=== PATIENT | female | born 1955 | race Hispanic/Latino ===

== ENCOUNTER 2025-06-15 06:51 | Emergency (ER) | payer OTHER ==
--- OUTSIDE RECORDS SUMMARY | 2025-06-15 06:55 | XMS REPORT | Continuity of Care Document ---
Author Name Unknown Address [address] [facility] [place] [address] [facility] [place] Address [address] [facility] [place] [address] Care Team Providers Care Hand Mixer Name Role Phone Olayinka Yepez Attending Clinician Unavailable JUVE NUNO Attending Clinician Unavailable SNEHA COHEN Attending Clinician OZ Cuba Attending Clinician Unavailable [facility] Attending Clinician Unavailable Sneha Cohen MD Attending Clinician [phone] Payers Payer Name Policy Type Policy Number Effective Date Expirati on Date Source [employer] NITIN GOLD PLUS 42 OA 7 [id number] 2022 00:00:00 [employer] 2 [id number] 2021 00:00:00 Problems Condition Name Condition Details Condition Category Status Onset Date Resolution Date Last Treatment Date Treating Clinician Comments Source Pruritus of vulva Pruritus of Vulva Problem Active 7- 00:00: 00 [facility] 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 Hyperglyce ruby Due to Type 2 Diabetes Mellitus Problem Active 9-08 00:00: 00 [facility] Right lower quadrant pain Right Lower Quadrant Pain Problem Active 06-12 00:00: 00 [facility] Screening mammograph y Screening Mammograph y Problem Active 06-12 00:00: 00 [facility] Intertrigo Intertrigo Problem Active 06-12 00:00: 00 [facility] Hormone replacemen t therapy Hormone Replacemen t Therapy Problem Active 01-10 00:00: 00 [facility] Family history of breast cancer Family History of Breast Cancer Problem Active 01-10 00:00: 00 [facility] Pain of breast Pain of Breast Problem Active 01-10 00:00: 00 [facility] Gynecologi isaías examinatio n abnormal Gynecologi isaías Examinatio n Abnormal Problem Active 01-07 00:00: 00 [facility] Candidiasi s of vagina Candidiasi s of Vagina Problem Active 01-07 00:00: 00 [facility] Atrophic vaginitis Atrophic Vaginitis Problem Active 01-07 00:00: 00 [facility] Hypothyroi dism Hypothyroi dism Problem [facility] [id number] Body mass index [BMI] 32.0-32.9, adult Problem [facility] [id number] Other obesity due to excess calories Problem [facility] [id number] Type 2 diabetes mellitus without complicati on, without long-term current use of insulin Problem [facility] Abnormal mammogram Abnormal mammogram Problem [facility] [id number] Anxiety Problem [facility] [id number] Type 2 diabetes mellitus with hyperglyce ruby, without long-term current use of insulin Problem [facility] [id number] Gastroesop hageal reflux disease without esophagiti s Problem [facility] Anxiety disorder Other specified anxiety disorders Problem [facility] Anemia Anemia, unspecifie d type Problem [facility] [id number] Chronic kidney disease, stage 3 unspecifie d Problem [facility] [id number] Essential hypertensi on Problem [facility] Social History Social Habit Start Date Stop Date Quantity Comments Source History of Tobacco Use [facility] Sex Assigned At [facility] Smoking Status Start Date Stop Date Source Never Smoker [facility] Medications Ordered Medication Name Filled Medication Name Start Date Stop Date Current Medication? Ordering Clinician Indication Dosage Frequency Signature (SIG) Comments Components Source B-Complex Plus B-12 B-Complex Plus B-12 No B-Complex Plus B-12 [facility] escitalopra m 20 mg tablet TAKE 1 TABLET BY MOUTH EVERY DAY FOR 90 DAYS escitalopra m 20 mg tablet TAKE 1 TABLET BY MOUTH EVERY DAY FOR 90 DAYS No escitalopr am 20 mg tablet TAKE 1 TABLET BY MOUTH EVERY DAY FOR 90 DAYS [facility] estradiol 0.01% (0.1 mg/gram) vaginal cream Insert 0.5 g 3 times a week by vaginal route at bedtime for 30 days. estradiol 0.01% (0.1 mg/gram) vaginal cream Insert 0.5 g 3 times a week by vaginal route at bedtime for 30 days. No .5g Q56H estradiol 0.01% (0.1 mg/gram) vaginal cream Insert 0.5 g 3 times a week by vaginal route at bedtime for 30 days. [facility] Mounjaro 12.5 MG/0.5ML Mounjaro 12.5 MG/0.5ML No Mounjaro 12.5 MG/0.5ML Vitamin D Vitamin D No Vitamin D Escitalopra m Oxalate 20 MG Escitalopra m Oxalate 20 MG No 1{table t} QD Escitalopr am Oxalate 20 MG Ramipril 10 MG Ramipril 10 MG No 1{capsu le} QD Ramipril 10 MG Pantoprazol e Sodium 40 MG Pantoprazol e Sodium 40 MG No 1{table t} QD Pantoprazo le Sodium 40 MG Levothyroxi ne Sodium 75 MCG Levothyroxi ne Sodium 75 MCG No QD Levothyrox ine Sodium 75 MCG Aspirin 81 81 MG Aspirin 81 81 MG No 1{table t} QD Aspirin 81 81 MG Jardiance 10 mg tablet TAKE 1 TABLET BY MOUTH EVERY DAY FOR 90 DAYS Jardiance 10 mg tablet TAKE 1 TABLET BY MOUTH EVERY DAY FOR 90 DAYS No Jardiance 10 mg tablet TAKE 1 TABLET BY MOUTH EVERY DAY FOR 90 DAYS [facility] levothyroxi ne 75 mcg tablet TAKE 1 TABLET BY MOUTH EVERY DAY levothyroxi ne 75 mcg tablet TAKE 1 TABLET BY MOUTH EVERY DAY No levothyrox ine 75 mcg tablet TAKE 1 TABLET BY MOUTH EVERY DAY [facility] magnesium magnesium No magnesium [facility] Mounjaro 7.5 mg/0.5 mL subcutaneou s pen injector INJECT 7.5MG SUBCUTANEOU S ONCE A WEEK 30 DAYS Mounjaro 7.5 mg/0.5 mL subcutaneou s pen injector INJECT 7.5MG SUBCUTANEOU S ONCE A WEEK 30 DAYS No Mounjaro 7.5 mg/0.5 mL subcutaneo us pen injector INJECT 7.5MG SUBCUTANEO US ONCE A WEEK 30 DAYS [facility] ramipril 10 mg capsule TAKE 1 CAPSULE BY MOUTH EVERY DAY ramipril 10 mg capsule TAKE 1 CAPSULE BY MOUTH EVERY DAY No ramipril 10 mg capsule TAKE 1 CAPSULE BY MOUTH EVERY DAY [facility] triamcinolo ne acetonide 0.1 % topical ointment APPLY A THIN LAYER TO THE AFFECTED AREA(S) BY TOPICAL ROUTE 2 TIMES PER DAY triamcinolo ne acetonide 0.1 % topical ointment APPLY A THIN LAYER TO THE AFFECTED AREA(S) BY TOPICAL ROUTE 2 TIMES PER DAY No triamcinol one acetonide 0.1 % topical ointment APPLY A THIN LAYER TO THE AFFECTED AREA(S) BY TOPICAL ROUTE 2 TIMES PER DAY [facility] Vitamin D3 Vitamin D3 No Vitamin D3 [facility] zinc zinc No zinc [facility] Immunizations Ordered Immunization Name Filled Immunization Name Date Status Comments Source Fluad (aIIV4) - SDS - 0.5mL Fluad (aIIV4) - SDS - 0.5mL Unknown Completed [facility] Flucelvax (ccIIV3) - SDS - 0.5mL Flucelvax (ccIIV3) - SDS - 0.5mL Unknown Completed [facility] Vital Signs Vital Name Observation Time Observation Value Comments S nicole height 2025-05-02 16:15:00 65 [in_i] Commo n [facility] weight 2025-05-02 16:15:00 155 [lb_av] Comm on [facility] bmi 2025-05-02 16:15:00 25.79 kg/m2 Comm on [facility] blood pressure systolic 2025-05-02 16:15:00 125 mm[Hg] Common [facility] blood pressure diastolic 2025-05-02 16:15:00 76 mm[Hg] [facility] height 2024-12-21 13:45:00 65 [in_i] Commo n [facility] weight 2024-12-21 13:45:00 160 [lb_av] Comm on [facility] bmi 2024-12-21 13:45:00 26.62 kg/m2 Comm on [facility] blood pressure systolic 2024-12-21 13:45:00 121 mm[Hg] [facility] blood pressure diastolic 2024-12-21 13:45:00 76 mm[Hg] Common [facility] height 2024-09-12 10:00:00 65 [in_i] Commo n [facility] weight 2024-09-12 10:00:00 166.6 [lb_av] Co mmon [facility] temperature 2024-09-12 10:00:00 97.6 [degF] Com mon [facility] bmi 2024-09-12 10:00:00 27.72 kg/m2 Comm on [facility] oximetry 2024-09-12 10:00:00 97 % Commo n [facility] respiratory rate 2024-09-12 10:00:00 16 /min [facility] blood pressure systolic 2024-09-12 10:00:00 118 mm[Hg] [facility] blood pressure diastolic 2024-09-12 10:00:00 70 mm[Hg] [facility] height 2024-09-12 10:20:00 65 [in_i] Commo n [facility] weight 2024-09-12 10:20:00 166.6 [lb_av] Co mmon [facility] temperature 2024-09-12 10:20:00 97.6 [degF] Com [facility] bmi 2024-09-12 10:20:00 27.72 kg/m2 Comm on [facility] oximetry 2024-09-12 10:20:00 97 % Commo n [facility] respiratory rate 2024-09-12 10:20:00 16 /min [facility] blood pressure systolic 2024-09-12 10:20:00 118 mm[Hg] [facility] blood pressure diastolic 2024-09-12 10:20:00 70 mm[Hg] Common [facility] height 2024-09-12 10:20:00 65 [in_i] Commo n [facility] weight 2024-09-12 10:20:00 166.6 [lb_av] Co [facility] temperature 2024-09-12 10:20:00 97.6 [degF] Com [facility] bmi 2024-09-12 10:20:00 27.72 kg/m2 Comm on [facility] oximetry 2024-09-12 10:20:00 97 % Commo n [facility] respiratory rate 2024-09-12 10:20:00 16 /min [facility] blood pressure systolic 2024-09-12 10:20:00 118 mm[Hg] [facility] blood pressure diastolic 2024-09-12 10:20:00 70 mm[Hg] Common [facility] height 2024-06-08 08:00:00 65 [in_i] Commo n [facility] weight 2024-06-08 08:00:00 175.4 [lb_av] Co [facility] temperature 2024-06-08 08:00:00 97.2 [degF] Com [facility] bmi 2024-06-08 08:00:00 29.18 kg/m2 Comm on [facility] oximetry 2024-06-08 08:00:00 99 % Commo n [facility] blood pressure systolic 2024-06-08 08:00:00 120 mm[Hg] [facility] blood pressure diastolic 2024-06-08 08:00:00 64 mm[Hg] Common [facility] height 2024-06-08 08:00:00 65 [in_i] Commo n [facility] weight 2024-06-08 08:00:00 175.4 [lb_av] Co mmon [facility] temperature 2024-06-08 08:00:00 97.2 [degF] Com mon [facility] bmi 2024-06-08 08:00:00 29.18 kg/m2 Comm on [facility] oximetry 2024-06-08 08:00:00 99 % Commo n [facility] blood pressure systolic 2024-06-08 08:00:00 120 mm[Hg] Common [facility] blood pressure diastolic 2024-06-08 08:00:00 64 mm[Hg] [facility] BP Diastolic 2024-05-04 00:00:00 62 mm[Hg] [facility] Weight 2024-05-04 00:00:00 177.8 [lb_av] [facility] Height 2024-05-04 00:00:00 65 [in_i] [facility] BP Systolic 2024-05-04 00:00:00 130 mm[Hg] [facility] BMI (Body Mass Index) 2024-05-04 00:00:00 29.6 kg/m2 [facility] Procedures Procedure Date / Time Performed Performing Clinicia n Source Gastric Bypass for Obesity 1981-10-19 00:00:00 [facility] Encounters Start Date/Time End Date/Time Encounter Type Admission Type Attending [facility] Care Facility Care Department Encounter ID Source 2024-06-08 08:00:[facility] [id number] 2023-04-24 13:07:00 Outpatient YepezOlayinka [facility]LMLC [facility] [id number] [facility] 2023-04-22 08:18:00 Outpatient YepezOlayinka STLMLC ST[facility] [id number] [facility] 2023-02-19 10:56:00 Outpatient YepezOlayinka STLMLC ST[facility] [id number] [facility] 2025-05-02 00:00:00 2025-05-02 00:00:00 OFFICE VISIT ESTAB PT LEVEL 4 [facility] ST[facility] [id number] [facility] 2025-02-21 00:00:00 2025-02-21 00:00:00 (TEL) STLMLC STL[facility]C [id number] [facility] 2025-02-09 00:00:00 2025-02-09 00:00:00 (TEL) STLMLC STLMLC [id number] [facility] 2024-12-21 00:00:00 2024-12-21 00:00:00 OFFICE VISIT ESTAB PT LEVEL 4 [facility]LMLC STLMLC [id number] [facility] 2024-11-25 00:00:00 2024-11-25 00:00:00 (TEL) STLMLC STLMLC [id number] [facility] 2024-09-12 00:00:00 2024-09-12 00:00:00 OFFICE VISIT ESTAB PT LEVEL 4 [facility]LMLC STLMLC [id number] [facility] 2024-09-12 00:00:00 2024-09-12 00:00:00 INIT ANNUAL [facility] VISIT STLML[facility] STL[facility]C [id number] [facility] 2024-06-08 00:00:00 2024-06-08 00:00:00 OFFICE VISIT ESTAB PT LEVEL 4 STLMLC STLMLC [id number] [facility] 2024-05-04 00:00:00 2024-05-04 00:00:00 HUY Barfield: [address], [place] [address] , Ph. [facility] - GC_GCBZW_Cindy Dykes* [id number] [facility] 2023-08-31 00:00:00 2023-08-31 00:00:00 Outpatient JUVE NUNO [id number] [facility] 2023-04-15 00:00:00 2023-04-15 00:00:00 Outpatient SNEHA COHEN [id number] [facility] 2023-04-13 00:00:00 2023-04-13 00:00:00 Outpatient SNEHA COHEN [id number] [facility] 2023-03-12 14:30:00 2023-03-12 14:30:00 Outpatient OZ LEWIS [id number] [facility] 2023-03-02 00:00:00 2023-03-02 00:00:00 Outpatient JUVE NUNO [id number] [facility] 2023-02-19 00:00:00 2023-02-19 00:00:00 Outpatient JUVE NUNO [id number] [facility] 2023-01-02 00:00:00 2023-01-02 00:00:00 Outpatient SNEHA COHEN [id number] [facility] 2022-12-11 00:00:00 2022-12-11 00:00:00 Outpatient SNEHA COHEN [id number] [facility] 2022-12-11 00:00:00 2022-12-11 00:00:00 Outpatient RAJWINDER MAY [id number] [facility] 2022-12-10 00:00:00 2022-12-10 00:00:00 Outpatient SNEHA COHEN [id number] [facility] 2022-12-10 00:00:00 2022-12-10 00:00:00 Outpatient RAJWINDER MAY [id number] [facility] 2022-11-25 00:00:00 2022-11-25 00:00:00 Outpatient RADHASNEHA PENNINGTON RAJWINDER MAY [id number] [facility] 2022-10-15 00:00:00 2022-10-15 00:00:00 Outpatient RADHA SNEHA MAY [id number] [facility] 2022-05-06 00:00:00 2022-05-06 00:00:00 Outpatient RADHA, SNEHA MAY [id number] [facility] 2022-05-02 00:00:00 2022-05-02 00:00:00 Outpatient SNEHA COHEN [id number] [facility] 2022-04-30 10:00:00 2022-04-30 10:00:00 Outpatient LAB90 RAJWINDER MAY [id number] [facility] 2022-04-30 09:15:00 2022-04-30 09:45:00 Office Visit Sneha Cohen [place] [id number] [facility] 2022-01-14 00:00:00 2022-01-14 00:00:00 Outpatient SNEHA COHEN [id number] [facility] 2021-11-06 00:00:00 2021-11-06 00:00:00 Outpatient SNEHA COHEN [id number] [facility] 2021-04-26 08:45:00 2021-04-26 08:45:00 Outpatient LAB90 RAJWINDER MAY [id number] [facility] 2021-04-26 08:00:00 2021-04-26 08:00:00 Outpatient SNEHA COHEN [id number] [facility] Results Test Description Test Time Test Comments Results Result Co mments Source COMPREHENSIVE METABOLIC [id number] 00:00:00* Test Item Value Reference Range Interpretation Comme nts NUCLEATED RBCS (test code = 38530-8) 0.0 /100 WBC'S See_Comment [Automated messa ge] The system which generated this result transmitted reference range: 0.0 /100 WBC'S. The reference range was not used to interpret this result as normal/abnormal. ABSOLUTE EOSINOPHILS (test code = 96855-9) 0.43 K/UL See_Comment [Automated messa ge] The system which generated this result transmitted reference range: 0.00-0.50 K/UL. The reference range was not used to interpret this result as normal/abnormal. ABSOLUTE LYMPHOCYTES (test code = 83814-4) 2.13 K/UL See_Comment [Automated messa ge] The system which generated this result transmitted reference range: 1.00-4.00 K/UL. The reference range was not used to interpret this result as normal/abnormal. ABSOLUTE MONOCYTES (test code = 52654-1) 0.59 K/UL See_Comment [Automated messa ge] The system which generated this result transmitted reference range: 0.20-1.00 K/UL. The reference range was not used to interpret this result as normal/abnormal. ABSOLUTE NEUTROPHILS (test code = 45125-4) 2.80 K/UL See_Comment [Automated messa ge] The system which generated this result transmitted reference range: 1.50-7.50 K/UL. The reference range was not used to interpret this result as normal/abnormal. BASOPHILS (test code = 63500-7) 1.8 % EOSINOPHILS (test code = 85859-8) 7.1 % HEMATOCRIT (test code = 28662-3) 36.5 % See_Comment [Automated messa ge] The system which generated this result transmitted reference range: 34.0-45.0 %. The reference range was not used to interpret this result as normal/abnormal. HEMOGLOBIN (test code = 718-7) 12.0 G/DL See_Comment [Automated messa ge] The system which generated this result transmitted reference range: 11.5-15.5 G/DL. The reference range was not used to interpret this result as normal/abnormal. LYMPHOCYTES (test code = 20841-4) 35.1 % MCH (test code = 59106-5) 28.6 PG See_Comment [Automated messa ge] The system which generated this result transmitted reference range: 25.0-33.0 PG. The reference range was not used to interpret this result as normal/abnormal. MCHC (test code = 81162-7) 32.9 G/DL See_Comment [Automated messa ge] The system which generated this result transmitted reference range: 31.0-36.0 G/DL. The reference range was not used to interpret this result as normal/abnormal. MCV (test code = 14325-2) 86.9 fL See_Comment [Automated messa ge] The system which generated this result transmitted reference range: 80.0-99.0 fL. The reference range was not used to interpret this result as normal/abnormal. MONOCYTES (test code = 66437-1) 9.7 % NEUTROPHILS (test code = 73818-2) 46.1 % PLATELET COUNT (test code = 84121-6) 243 K/UL See_Comment [Automated messa ge] The system which generated this result transmitted reference range: 130-400 K/UL. The reference range was not used to interpret this result as normal/abnormal. RBC (test code = 58361-6) 4.20 M/UL See_Comment [Automated messa ge] The system which generated this result transmitted reference range: 3.80-5.40 M/UL. The reference range was not used to interpret this result as normal/abnormal. RDW (test code = 08537-4) 15.4 % See_Comment H [Automated messa ge] The system which generated this result transmitted reference range: 11.5-15.0 %. The reference range was not used to interpret this result as normal/abnormal. WBC (test code = 88798-2) 6.1 K/UL See_Comment [Automated messa ge] The system which generated this result transmitted reference range: 3.5-11.0 K/UL. The reference range was not used to interpret this result as normal/abnormal. HEMOGLOBIN A1c (test code = 4548-4) 5.4 % See_Comment [Automated messa ge] The system which generated this result transmitted reference range: 4.2-5.6 %. The reference range was not used to interpret this result as normal/abnormal. TSH REFLEX TO FREE T4 (test code = 93448-1) 1.940 UIU/ML See_Comment [Automated messa ge] The system which generated this result transmitted reference range: 0.400-4.100 UIU/ML. The reference range was not used to interpret this result as normal/abnormal. ALBUMIN, URINE, RANDOM (test code = 11772-5) 1.0 MG/DL NOT ESTAB MG/DL CALC ALBUMIN/CREAT, RND (test code = 46499-8) 6 MG/G See_Comment [Automated messa ge] The system which generated this result transmitted reference range: <30 MG/G. The reference range was not used to interpret this result as normal/abnormal. CREATININE, URINE, CONC. (test code = 2161-8) 159.8 MG/DL NOT ESTAB MG/DL ALBUMIN (test code = 1751-7) 4.6 G/DL See_Comment [Automated messa ge] The system which generated this result transmitted reference range: 3.5-5.2 G/DL. The reference range was not used to interpret this result as normal/abnormal. ALKALINE PHOSPHATASE (test code = 6768-6) 96 U/L See_Comment [Automated message] The system which generated this result transmitted reference range: 40-142 U/L. The reference range was not used to interpret this result as normal/abnormal. BILIRUBIN, TOTAL (test code = 1975-2) 0.6 MG/DL See_Comment [Automated message] The system which generated this result transmitted reference range: <=1.2 MG/DL. The reference range was not used to interpret this result as normal/abnormal. BUN (test code = 3094-0) 19 MG/DL See_Comment [Automated messa ge] The system which generated this result transmitted reference range: 8-23 MG/DL. The reference range was not used to interpret this result as normal/abnormal. CALCIUM (test code = 30363-1) 10.5 MG/DL See_Comment [Automated messa ge] The system which generated this result transmitted reference range: 8.5-10.5 MG/DL. The reference range was not used to interpret this result as normal/abnormal. CALC A/G RATIO (test code = 1759-0) 1.8 RATIO See_Comment [Automated [employer] ge] The system which generated this result transmitted reference range: 1.0-2.6 RATIO. The reference range was not used to interpret this result as normal/abnormal. CALC BUN/CREAT (test code = 3097-3) 14 RATIO See_Comment [Automated messa ge] The system which generated this result transmitted reference range: 6-28 RATIO. The reference range was not used to interpret this result as normal/abnormal. CALC GLOBULIN (test code = 79783-0) 2.5 G/DL See_Comment [Automated messa ge] The system which generated this result transmitted reference range: 1.9-3.7 G/DL. The reference range was not used to interpret this result as normal/abnormal. CARBON DIOXIDE (test code = 1963-8) 26 MEQ/L See_Comment [Automated messa ge] The system which generated this result transmitted reference range: 19-31 MEQ/L. The reference range was not used to interpret this result as normal/abnormal. CHLORIDE (test code = 2075-0) 103 MEQ/L See_Comment [Automated messa ge] The system which generated this result transmitted reference range: 95-107 MEQ/L. The reference range was not used to interpret this result as normal/abnormal. CREATININE (test code = 2160-0) 1.34 MG/DL See_Comment H [Automated messa ge] The system which generated this result transmitted reference range: 0.60-1.30 MG/DL. The reference range was not used to interpret this result as normal/abnormal. eGFR (2020 CKD-EPI) (test code = 47875-9) 44 ML/MIN/1.73 See_Comment L [Automated messa ge] The system which generated this result transmitted reference range: >60 ML/MIN/1.73. The reference range was not used to interpret this result as normal/abnormal. GLUCOSE (test code = 1558-6) 89 MG/DL See_Comment [Automated messa ge] The system which generated this result transmitted reference range: 70-99 MG/DL. The reference range was not used to interpret this result as normal/abnormal. POTASSIUM (test code = 2823-3) 4.1 MEQ/L See_Comment [Automated messa ge] The system which generated this result transmitted reference range: 3.5-5.4 MEQ/L. The reference range was not used to interpret this result as normal/abnormal. PROTEIN, TOTAL (test code = 2885-2) 7.1 G/DL See_Comment [Automated messa ge] The system which generated this result transmitted reference range: 6.1-8.3 G/DL. The reference range was not used to interpret this result as normal/abnormal. AST (test code = 1920-8) 22 U/L See_Comment [Automated messa ge] The system which generated this result transmitted reference range: 9-40 U/L. The reference range was not used to interpret this result as normal/abnormal. ALT (test code = 1742-6) 9 U/L See_Comment [Automated messa ge] The system which generated this result transmitted reference range: 5-40 U/L. The reference range was not used to interpret this result as normal/abnormal. SODIUM (test code = 2951-2) 142 MEQ/L See_Comment [Automated messa ge] The system which generated this result transmitted reference range: 133-146 MEQ/L. The reference range was not used to interpret this result as normal/abnormal. Urinalysis macro (dipstick) panel - [id number] 13:39:00* Test Item Value Reference Range Interpretation Comme nts Leukocytes (test code = Leukocytes) Negative Nitrite (test code = Nitrite) negative Urobilinogen (test code = Urobilinogen) Normal Protein (test code = Protein) Negative pH (test code = pH) 6.0 Blood (test code = Blood) Negative Specific [place] (test code = Specific [place]) 1.015 Ketone (test code = Ketone) Negative Bilirubin (test code = Bilirubin) Negative Glucose (test code = Glucose) Negative Appearance (test code = Appearance) Clear Color (test code = Color) [id number] 00:00:00* Test Item Value Reference Range Interpretation Comme nts LMP date: (test code = LMP date:) 10/19/2010 Pap, liquid-based (test code = Pap, liquid-based) NILM nilm source (liquid-based cytology): (test code = source (liquid-based cytology):) CERVICAL (WHICH INCLUDES ENDOCERVICAL) HPV high risk DNA (non 16/18) (test code = HPV high risk DNA (non 16/18)) NOT DETECTED not detected HPV high risk DNA type 16 (test code = HPV high risk DNA type 16) NOT DETECTED not detected HPV high risk DNA type 18 (test code = HPV high risk DNA type 18) NOT DETECTED not detected [id number] SCR WENDY BILAT W/CAD3D SCR WENDY BILAT W/CAD
[2025-06-15] MEDS ORDERED: FAMOTIDINE 20 MG/2 ML VIAL IV ONE (07:29)
[2025-06-15] MEDS ORDERED: NA CHLORIDE 0.9% 1,000 ML ONE (07:29)
[2025-06-15 07:40] LABS: PT Prothrombin Time 13.0 SECONDS (10-13.0); Protime INR 1.16
[2025-06-15 07:41] LABS: Absolute Lymphocytes (CBC) 2.1 K/uL (0.7-4.9); Hematocrit 37.0 % (36.0-45.0); Hemoglobin 12.7 g/dL (12.0-15.0); MCH 29.7 pg (27.0-35.0); MCHC 34.3 g/dL (32.0-36.0); MCV 86.5 fL (80-100); MPV 9.8 fL (7.6-11.3); Nucleated RBC Absolute Count 0.0 (0-0); Nucleated Red Blood Cells % 0.2 % (0-0); RBC Red Blood Cell Count 4.28 M/uL (3.86-4.86); White Blood Count 8.00 thou/uL (4.3-10.9)
[2025-06-15 08:00] LABS: ALT/SGPT 18 U/L (13-56); AST/SGOT 24 U/L (15-37); Albumin 3.7 g/dL (3.4-5.0); Albumin/Globulin Ratio 0.9 (1.1-1.8); Alkaline Phosphatase 108 U/L (45-117); Anion Gap 10.7 mEq/L (5.0-15.0); BUN Blood Urea Nitrogen 22 mg/dL (7-18); Bilirubin Indirect, Calculated 0.3 mg/dL (0.2-0.8); Globulin 4.1 g/dL (2.3-3.5); Glucose Level 121 mg/dL (74-106); Lipase 72 U/L (13-75); Magnesium 2.0 mg/dL (1.6-2.4); NT PRO-BNP 126 pg/mL (<125); Potassium 3.7 mEq/L (3.5-5.1); Troponin High Sensitivity 3.6 pg/mL (<58.9)
[2025-06-15] MEDS ORDERED: KETOROLAC 30 MG/ML INJ ONE (08:05)
[2025-06-15] MEDS ORDERED: ACETAMINOPHEN 500 MG TAB ONE (08:05)
[2025-06-15] MEDS ORDERED: TDAP (DIPHTH,PERTUSS(ACELL),TET VAC) 0.5 ML VIAL IMVAC ONE (08:05)
--- NOTE | 2025-06-15 08:19 | RAD REPORT ---
EXAM: CT CHEST, ABDOMEN AND PELVIS WITHOUT CONTRAST CLINICAL INDICATION: Female, 69 years old. syncope TECHNIQUE: CT chest, abdomen and pelvis was performed, without IV contrast, as per department protoco l. Axial, sagittal and coronal reconstructions were obtained. One or more of the following dose reduction techniques were used: Automated exposure control, adjustment of the mA and/or kV according to the patient size, and/or iterative reconstruction. Unless otherwise specified, incidental findings do not require dedicated imaging follow-up. COMPARISON: No prior exam. FINDINGS: The lack of intravenous contrast limits the sensitivity of this exam for evaluation of solid visceral organs, vascular structures, and retroperitoneum. Chest: LOWER NECK/CHEST WALL: Visualized thyroid gland and soft tissues are normal. LUNGS AND AIRWAYS: Airways are clear. No evidence of airspace or interstitial process. No nodules. PLEURA: No pleural effusion. No pneumothorax. Hemidiaphragms are normally positioned. MEDIASTINUM AND LYMPH NODES: No mediastinal mass or fluid collection. Normal size mediastinal, hilar, and axillary lymph nodes. THORACIC AORTA: Normal caliber and configuration. PULMONARY ARTERIES: Normal caliber. HEART: Unremarkable. Abdomen/Pelvis LIVER: Normal in size and contour. No focal lesion. GALLBLADDER/BILE DUCTS: No biliary ductal dilatation. PANCREAS: No mass, ductal dilation, or jocelyn-pancreatic fluid. SPLEEN: Normal size. No focal lesion. ADRENALS: Normal; no mass. KIDNEYS AND URETERS: Normal size and contour. Right renal pelvis 1.1 cm calculus. No hydronephrosis. GASTROINTESTINAL TRACT: Stomach is non-dilated. Small bowel has normal course and caliber. No colonic wall thickening or pericolonic inflammatory changes. PERITONEUM: No free fluid. LYMPH NODES: No lymphadenopathy. ABDOMINAL AORTA AND OTHER VESSELS: Normal caliber aorta and IVC. URINARY BLADDER: Normal contour. REPRODUCTIVE ORGANS: No pathologic process. MUSCULOSKELETAL: No acute or suspicious osseous abnormality. ADDITIONAL FINDINGS: None IMPRESSION: Nonobstructing right renal pelvis 1.1 cm calculus. No other acute or significant abnormalities in the chest, abdomen, or pelvis.
--- NOTE | 2025-06-15 08:31 | RAD REPORT ---
EXAM: CT brain without contrast HISTORY: syncope COMPARISON: None TECHNIQUE: Multiple contiguous axial images were obtained and a CT of the brain without contrast. Sag ittal and coronal reformats were performed. FINDINGS: No evidence of hydrocephalus, intracranial hemorrhage, or extra-axial fluid collection. Patchy hypoattenuation in the right frontal white matter anteriorly, possibly reaching the cortex. O ther mild nonspecific deep white matter hypodensities, suggestive of chronic small vessel ischemic changes. The calvarium is intact. Right occipital scalp laceration and small hematoma. The visualized paranasa l sinuses and mastoid air cells are essentially clear. IMPRESSION: Right frontal white matter patchy hypoattenuation, if there is concern for acute ischemia additional evaluation by stroke protocol MRI with provide improved assessment.. Right occipital scalp laceration and small hematoma. THIS REPORT CONTAINS FINDINGS THAT MAY BE CRITICAL TO PATIENT CARE. The findings were verbally commun icated via telephone to Ruben Subramanian MD on 06/15/2025 8:28 AM. EXAM: CT of the cervical spine without contrast HISTORY: syncope COMPARISON: None TECHNIQUE: Multiple contiguous axial images were obtained in a CT of the cervical spine without contr ast. Sagittal and coronal reformats were performed. FINDINGS: The vertebral bodies demonstrate normal height and alignment. No evidence of acute fracture or subluxation.. Mild degenerative changes with ossification along the posterior longitudinal ligament. No prevertebral soft tissue swelling is seen. The posterior facets are well aligned. Normal alignment of the skull base with the cervical spine is seen. The lung apices are unremarkable. IMPRESSION: No evidence of acute osseous abnormality of the cervical spine. Degenerative changes as above.
--- NOTE | 2025-06-15 08:42 | ER ---
Nurse's Notes [facility] Name: Jennifer Du Age: 69 yrs Sex: Female : 1955 Arrival Date: 06/15/2025 Time: 06:51 Bed 14 Private MD: Olayinka Yepez Diagnosis: History of falling;Fall on same level, unspecified;Laceration without foreign body of other part of head-scalp;Syncope Near Presentation: 06/15 07:14 Chief complaint: Patient states: She got up too fast from the bed, took two steps, told tb4 her she is going to pass out than she fell back wards hitting her head and hips. Care prior to arrival: paper towel to the back of head to stop bleeding. Mechanism of Injury: Laceration sustained Injury was accidental. Trauma event details: Injury occurred: at home. Injury occurred: June 15, 2025. 07:14 Acuity: APRIL 3 tb4 07:14 Method Of Arrival: Ambulatory tb4 07:26 Coronavirus screen: At this time, the client does not indicate any symptoms associated tb4 with coronavirus-19. Ebola Screen: No symptoms or risks identified at this time. Initial Sepsis Screen: Does the patient meet any 2 criteria? No. Patient's initial sepsis screen is negative. Does the patient have a suspected source of infection? No. Patient's initial sepsis screen is negative. Risk Assessment: Do you want to hurt yourself or someone else? Patient reports no desire to harm self or others. Onset of symptoms was June 15, 2025. Historical: - Allergies: 07:26 No Known Allergies; tb4 - Home Meds: 07:26 Mounjaro subcutaneous [Active]; tb4 - PMHx: 07:26 Depressive disorder; Diabetes mellitus; Hypertensive disorder; tb4 - PSHx: 07:26 Tonsillectomy; gastric bypass; tb4 - Immunization history:: Adult Immunizations up to date. - Infectious Disease History:: Denies. - Social history:: Smoking status: Patient denies any tobacco usage or history of. Patient/guardian denies using alcohol, street drugs, IV drugs. Screenin:24 Abuse screen: Denies threats or abuse. Denies injuries from another. Tuberculosis tb4 screening: No symptoms or risk factors identified. 07:[address] [facility] ED Fall Risk Assessment (Adult) History of falling in the last 3 months, aa5 including since admission Yes- single mechanical fall (1 pt) Confusion or Disorientation No (0 pts) Intoxicated or Sedated No (0 pts) Impaired Gait No (0 pts) Mobility Assist Device Used No (0 pt) Altered Elimination No (0 pt) Score/Fall Risk Level 0 - 2 = Low Risk Oriented to surroundings, Maintained a safe environment, Educated pt \T\ family on fall prevention, incl call for assistance when getting out of bed, Assessed \T\ reinforced patient's understanding of fall precautions. Nutritional screening: No deficits noted. Primary Survey: 07:14 Breathing/Chest: Spontaneous respiratory effort, equal unlabored respirations, breath tb4 sounds clear bilaterally, regular pattern, symmetrical chest rise and fall. Respiratory effort: spontaneous, unlabored, Breath sounds: clear, Respiratory pattern: regular, Chest inspection: symmetrical rise and fall of the chest. Circulation: No external hemorrhage present. Regular and strong central pulse, skin warm/dry/normal color. Hemorrhage: bleeding under control. Disability Client is alert. Assessment: 07:14 General: Appears uncomfortable, bleeding behind the head. Behavior is calm, tb4 cooperative. Pain: Complains of pain in right occipital area hematoma and laceration Pain does not radiate. Pain currently is 10 out of 10 on a pain scale. Quality of pain is described as pressure, sharp, Pain began suddenly, Is continuous, Alleviated by nothing. Neuro: Level of Consciousness is awake, alert, obeys commands, Oriented to person, place, time, situation, Appropriate for age Armhole Presser are equal bilaterally Moves all extremities. Full function Gait is steady, Speech is normal, Facial symmetry appears normal. Respiratory: No deficits noted. Airway is patent Respiratory effort is even, unlabored, Respiratory pattern is regular, symmetrical. GI: No signs and/or symptoms were reported involving the gastrointestinal system. : No signs and/or symptoms were reported regarding the genitourinary system. Derm: Skin is intact, is healthy with good turgor, Skin is dry, Skin is normal, Skin temperature is warm. Musculoskeletal: No signs and/or symptoms reported regarding the musculoskeletal system. Circulation, motion, and sensation intact. Range of motion: intact in all extremities. Injury Description: Head injury sustained to right occipital area is open, bleeding, did not have loss of consciousness. 07:32 Reassessment: Pt in CT scan . aa5 07:53 Reassessment: Patient is alert, oriented x 3, equal unlabored respirations, skin aa5 warm/dry/pink. 08:14 Reassessment: Patient is alert, oriented x 3, equal unlabored respirations, skin aa5 warm/dry/pink. 09:50 Reassessment: Patient is alert, oriented x 3, equal unlabored respirations, skin aa5 warm/dry/pink. Vital Signs: 07:24 BP 142 / 75; Pulse 73; Resp 19; Pulse Ox 100% on R/A; Weight 72.57 kg; Height 5 ft. 5 tb4 in. ; Pain 10/10; 08:30 BP 122 / 76; Pulse 71; Resp 18 S; Pulse Ox 98% on R/A; aa5 09:40 BP 132 / 67; Pulse 72; Resp 16 S; Pulse Ox 95% on R/A; aa5 07:24 Body Mass Index 26.63 (72.57 kg, 165.1 cm) tb4 07:24 Pain Scale: Adult tb4 Alfonso Coma Score: 07:24 Eye Response: spontaneous(4). Motor Response: obeys commands(6). Verbal Response: tb4 oriented(5). Total: 15. 07:55 Eye Response: spontaneous(4). Motor Response: obeys commands(6). Verbal Response: audi oriented(5). Total: 15. 07:58 Eye Response: spontaneous(4). Motor Response: obeys commands(6). Verbal Response: audi oriented(5). Total: 15. Trauma Score (Adult): 07:24 Eye Response: spontaneous(1); Verbal Response: oriented(1); Motor Response: obeys tb4 commands(2); Systolic BP: > 89 mm Hg(4); Respiratory Rate: 10 to 29 per min(4); [place] Score: 15; Trauma Score: 12 08:30 Eye Response: spontaneous(1); Verbal Response: oriented(1); Motor Response: obeys aa5 commands(2); Systolic BP: > 89 mm Hg(4); Respiratory Rate: 10 to 29 per min(4); [place] Score: 15; Trauma Score: 12 09:40 Eye Response: spontaneous(1); Verbal Response: oriented(1); Motor Response: obeys aa5 commands(2); Systolic BP: > 89 mm Hg(4); Respiratory Rate: 10 to 29 per min(4); [place] Score: 15; Trauma Score: 12 ED Course: 06:53 Patient arrived in ED. jj6 06:53 Olayinka Yepez DO is Private Physician. jj6 07:10 Ruben Subramanian MD is Attending Physician. audi 07:13 Megan Yoder, RN is Primary Nurse. aa5 07:19 Triage completed. tb4 07:24 Patient has correct armband on for positive identification. Bed in low position. Call tb4 light in reach. Adult w/ patient. 07:24 Patient maintains SpO2 saturation greater than 95% on room air. tb4 07:26 Arm band placed on right wrist. tb4 07:30 Inserted saline lock: 20 gauge in right antecubital area, using aseptic technique. tb4 Blood collected. Flushed with 10 mL NS. 07:41 Chest Abd Pelvis Wo Con In Process Unspecified. EDMS 07:41 Head C Spine Mpr Wo Con In Process Unspecified. EDMS 07:45 Assist provider with laceration repair on back of head using bouchra. Set up tray. aa5 Performed by Ruben Subramanian MD Patient tolerated well. 07:55 EKG done, by ED staff, reviewed by Ruben Subramanian MD. nh2 08:23 XRAY Chest (1 view) In Process Unspecified. EDMS 08:41 Olayinka Yepez DO is Referral Physician. audi 09:50 IV discontinued, intact, bleeding controlled, No redness/swelling at site. Pressure aa5 dressing applied. Administered Medications: 07:53 Drug: NS 0.9% IV 1000 ml IV at 1000 ml once; to be given as a bolus over 60 minutes nh2 Route: IV; Rate: 1000 ml; Site: right antecubital; 09:00 Follow up: IV Status: Completed infusion; IV Intake: 1000ml nh2 07:53 Drug: Famotidine IVP 20 mg IVP once; dilute with 10 mL 0.9% NaCl; give over 2 minutes nh2 Route: IVP; Site: right antecubital; 07:56 Follow up: Response: No adverse reaction aa5 08:15 Follow up: Response: No adverse reaction nh2 08:14 Drug: Boostrix Tdap IM 0.5 ml IM once; as a single dose Route: IM; Site: right deltoid; nh2 08:45 Follow up: Response: No adverse reaction nh2 08:14 Drug: Ketorolac IVP 15 mg IVP once Route: IVP; Site: right antecubital; nh2 08:45 Follow up: Response: No adverse reaction; Pain is decreased 08:14 Drug: Acetaminophen PO 1000 mg PO once Route: PO; nh2 08:45 Follow up: Response: No adverse reaction; Pain is decreased nh2 Medication: 08:14 Vaccine Information Statement (VIS) provided today. Questions and/or concerns marcos addressed. VIS edition date: May 24, 2021. Intake: 09:00 IV: 1000ml; Total: 1000ml. nh2 Outcome: 08:41 Discharge ordered by . audi 09:50 Discharged to home via wheelchair, with family, marcos 09:50 Condition: stable 09:50 Discharge instructions given to patient, Instructed on discharge instructions, follow up and referral plans. medication usage, wound care, Demonstrated understanding of instructions, follow-up care, medications, wound care, Prescriptions given X 1, 09:54 Patient left the ED. aa5 Signatures: Dispatcher [employer] Ruben Coe MD MD cha Calderon, Audri, RN RN aa5 Annia Espinosa Jr, Noel RN RN nh2 Kati Goldstein RN RN tb4
--- NOTE | 2025-06-15 08:42 | EDPHYS ---
Physician Documentation [facility] Name: Jennifer Du Age: 69 yrs Sex: Female : 1955 Arrival Date: 06/15/2025 Time: 06:51 Bed 14 Private MD: [facility] ED Physician Ruben Subramanian HPI: 06/15 07:54 This 69 yrs old Female presents to ER via Ambulatory with complaints of Fall audi Injury, Head Injury With LOC-Adult, Syncope. 07:54 Details of fall: The patient fell from an upright position. Onset: The symptoms/episode audi began/occurred just prior to arrival. Associated injuries: The patient sustained injury to the head. Severity of symptoms: At their worst the symptoms were moderate, in the emergency department the symptoms are unchanged. The patient has not experienced similar symptoms in the past. Historical: - Allergies: 07:26 No Known Allergies; tb4 - Home Meds: 07:26 Mounjaro subcutaneous [Active]; tb4 - PMHx: 07:26 Depressive disorder; Diabetes mellitus; Hypertensive disorder; tb4 - PSHx: 07:26 Tonsillectomy; gastric bypass; tb4 - Immunization history:: Adult Immunizations up to date. - Infectious Disease History:: Denies. - Social history:: Smoking status: Patient denies any tobacco usage or history of. Patient/guardian denies using alcohol, street drugs, IV drugs. ROS: 07:55 Constitutional: Negative for fever, chills, and weight loss, Eyes: Negative for injury, audi pain, redness, and discharge, ENT: Negative for injury, pain, and discharge, Neck: Negative for injury, pain, and swelling, Cardiovascular: Negative for chest pain, palpitations, and edema, Respiratory: Negative for shortness of breath, cough, wheezing, and pleuritic chest pain, Abdomen/GI: Negative for abdominal pain, nausea, vomiting, diarrhea, and constipation, Back: Negative for injury and pain, : Negative for injury, bleeding, discharge, and swelling, MS/Extremity: Negative for injury and deformity, Skin: Negative for injury, rash, and discoloration, Psych: Negative for depression, anxiety, suicide ideation, homicidal ideation, and hallucinations, Allergy/Immunology: Negative for hives, rash, and allergies, Endocrine: Negative for neck swelling, polydipsia, polyuria, polyphagia, and marked weight changes, Hematologic/Lymphatic: Negative for swollen nodes, abnormal bleeding, and unusual bruising, 07:55 Neuro: Positive for near syncope, weakness, Exam: 07:55 Constitutional: This is a well developed, well nourished patient who is awake, alert, audi and in no acute distress. Head/Face: Normocephalic, atraumatic. Eyes: Pupils equal round and reactive to light, extra-ocular motions intact. Lids and lashes normal. Conjunctiva and sclera are non-icteric and not injected. Cornea within normal limits. Periorbital areas with no swelling, redness, or edema. ENT: Nares patent. No nasal discharge, no septal abnormalities noted. Tympanic membranes are normal and external auditory canals are clear. Oropharynx with no redness, swelling, or masses, exudates, or evidence of obstruction, uvula midline. Mucous membranes moist. Neck: Trachea midline, no thyromegaly or masses palpated, and no cervical lymphadenopathy. Supple, full range of motion without nuchal rigidity, or vertebral point tenderness. No Meningismus. Chest/axilla: Normal chest wall appearance and motion. Nontender with no deformity. No lesions are appreciated. Cardiovascular: Regular rate and rhythm with a normal S1 and S2. No gallops, murmurs, or rubs. Normal PMI, no JVD. No pulse deficits. Respiratory: Lungs have equal breath sounds bilaterally, clear to auscultation and percussion. No rales, rhonchi or wheezes noted. No increased work of breathing, no retractions or nasal flaring. Abdomen/GI: Soft, non-tender, with normal bowel sounds. No distension or tympany. No guarding or rebound. No evidence of tenderness throughout. Back: No spinal tenderness. No costovertebral tenderness. Full range of motion. Female : Normal external genitalia. Skin: Warm, dry with normal turgor. Normal color with no rashes, no lesions, and no evidence of cellulitis. MS/ Extremity: Pulses equal, no cyanosis. Neurovascular intact. Full, normal range of motion., bilateral aka Neuro: Awake and alert, GCS 15, oriented to person, place, time, and situation. Cranial nerves II-XII grossly intact. Motor strength 5/5 in all extremities. Sensory grossly intact. Cerebellar exam normal. Normal gait. Psych: Awake, alert, with orientation to person, place and time. Behavior, mood, and affect are within normal limits. 09:37 ECG was reviewed by the Attending Physician. [facility] Vital Signs: 07:24 BP 142 / 75; Pulse 73; Resp 19; Pulse Ox 100% on R/A; Weight 72.57 kg; Height 5 ft. 5 tb4 in. ; Pain 10/10; 08:30 BP 122 / 76; Pulse 71; Resp 18 S; Pulse Ox 98% on R/A; aa5 09:40 BP 132 / 67; Pulse 72; Resp 16 S; Pulse Ox 95% on R/A; aa5 07:24 Body Mass Index 26.63 (72.57 kg, 165.1 cm) tb4 07:24 Pain Scale: Adult tb4 [place] Coma Score: 07:24 Eye Response: spontaneous(4). Motor Response: obeys commands(6). Verbal Response: tb4 oriented(5). Total: 15. 07:55 Eye Response: spontaneous(4). Motor Response: obeys commands(6). Verbal Response: audi oriented(5). Total: 15. 07:58 Eye Response: spontaneous(4). Motor Response: obeys commands(6). Verbal Response: audi oriented(5). Total: 15. Trauma Score (Adult): 07:24 Eye Response: spontaneous(1); Verbal Response: oriented(1); Motor Response: obeys tb4 commands(2); Systolic BP: > 89 mm Hg(4); Respiratory Rate: 10 to 29 per min(4); Alfonso Score: 15; Trauma Score: 12 08:30 Eye Response: spontaneous(1); Verbal Response: oriented(1); Motor Response: obeys aa5 commands(2); Systolic BP: > 89 mm Hg(4); Respiratory Rate: 10 to 29 per min(4); Alfonso Score: 15; Trauma Score: 12 09:40 Eye Response: spontaneous(1); Verbal Response: oriented(1); Motor Response: obeys aa5 commands(2); Systolic BP: > 89 mm Hg(4); Respiratory Rate: 10 to 29 per min(4); [place] Score: 15; Trauma Score: 12 Laceration: 07:56 Wound Repair of 2.5cm ( 1.0in ) subcutaneous laceration to right occipital area. Linear audi shaped.. Distal neuro/vascular/tendon intact. Anesthesia: Local anesthetic administered with 0mls . Wound prep: Simple cleansing by me. Skin closed with 5 5 bouchra Prolene using staple gun. MDM: 07:10 Medical Screening Exam initiated audi 07:58 Differential diagnosis: Contusion of Hematoma on Laceration of scalp. Data reviewed: [facility] vital signs, nurses notes, EMS record, lab test result(s), EKG, radiologic studies, CT scan, plain films. Consideration of Admission/Observation Escalation of care including admission/observation considered. I considered the following discharge prescriptions or medication management in the emergency department Medications were administered in the Emergency Department. See MAR. Independent interpretation of the following test(s) in the Emergency Department EKG: See my EKG interpretation above. Test considered but Not performed: MRI: no mri brain. Historians other than the Patient: Spouse/Significant Other: . 06/15 07:16 Order name: Basic Metabolic Panel; Complete Time: 08:41 [facility] 06/15 07:16 Order name: CBC with Diff; Complete Time: 08:41 [facility] 06/15 07:16 Order name: LFT's; Complete Time: 08:41 [facility] 06/15 07:16 Order name: Magnesium; Complete Time: 08:41 [facility] 06/15 07:16 Order name: NT PRO-BNP; Complete Time: 08:41 [facility] 06/15 07:16 Order name: PT-INR; Complete Time: 08:41 [facility] 06/15 07:16 Order name: Troponin HS; Complete Time: 08:41 [facility] 06/15 07:16 Order name: Lipase; Complete Time: 08:41 [facility] 06/15 07:16 Order name: XRAY Chest (1 view); Complete Time: 09:40 [facility] 06/15 07:22 Order name: Chest Abd Pelvis Wo Con; Complete Time: 09:40 EDMS 06/15 07:22 Order name: Head C Spine Mpr Wo Con; Complete Time: 08:41 EDMS 06/15 07:16 Order name: Cardiac monitoring; Complete Time: 07:53 [facility] 06/15 07:16 Order name: EKG - Nurse/Tech; Complete Time: 07:53 [facility] 06/15 07:16 Order name: IV Saline Lock; Complete Time: 07:25 [facility] 06/15 07:16 Order name: Labs collected and sent; Complete Time: 07:25 [facility] 06/15 07:16 Order name: O2 Per Protocol; Complete Time: 07:38 [facility] 06/15 07:16 Order name: O2 Sat Monitoring; Complete Time: 07:38 [facility] 06/15 07:53 Order name: Dressing - Wound; Complete Time: 07:56 [facility] 06/15 07:53 Order name: Gloves, Sterile; Complete Time: 07:56 [facility] 06/15 07:53 Order name: Setup Suture Tray; Complete Time: 07:56 [facility] 06/15 07:53 Order name: Ice pack; Complete Time: 07:56 [facility] EC:37 Rate is 69 beats/min. Rhythm is regular. QRS [place] is Normal. AR interval is normal. QRS audi interval is normal. QT interval is normal. No Q waves. T waves are Normal. No ST changes noted. Clinical impression: Normal ECG and No evidence of ischemia. Interpreted by me. Reviewed by me. Administered Medications: 07:53 Drug: NS 0.9% IV 1000 ml IV at 1000 ml once; to be given as a bolus over 60 minutes nh2 Route: IV; Rate: 1000 ml; Site: right antecubital; 09:00 Follow up: IV Status: Completed infusion; IV Intake: 1000ml nh2 07:53 Drug: Famotidine IVP 20 mg IVP once; dilute with 10 mL 0.9% NaCl; give over 2 minutes nh2 Route: IVP; Site: right antecubital; 07:56 Follow up: Response: No adverse reaction aa5 08:15 Follow up: Response: No adverse reaction nh2 08:14 Drug: Boostrix Tdap IM 0.5 ml IM once; as a single dose Route: IM; Site: right deltoid; nh2 08:45 Follow up: Response: No adverse reaction nh2 08:14 Drug: Ketorolac IVP 15 mg IVP once Route: IVP; Site: right antecubital; nh2 08:45 Follow up: Response: No adverse reaction; Pain is decreased nh2 08:14 Drug: Acetaminophen PO 1000 mg PO once Route: PO; nh2 08:45 Follow up: Response: No adverse reaction; Pain is decreased nh2 Disposition Summary: 06/15/25 08:41 Discharge Ordered Notes: Location: Home audi Problem: new audi Symptoms: have improved audi Condition: Stable audi Diagnosis - History of falling audi - Fall on same level, unspecified audi - Laceration without foreign body of other part of head - scalp audi - Syncope Near audi Followup: audi - With: Olayinka Yepez DO - When: 2 - 3 days - Reason: Recheck today's complaints, Continuance of care, Re-evaluation by your physician Discharge Instructions: - Discharge Summary Sheet audi - Head Injury, Adult audi - Laceration Care, Adult audi - Laceration Care, Adult, [id number] audi - Syncope, [id number] audi - Fall Prevention in the Home, Adult, Gcox-qa-[id number] audi - Head Injury, Adult, [id number]-tc-[id number] audi - Understanding Your Risk for Falls audi Forms: - Medication Reconciliation Form audi - Antibiotic Education audi - Prescription Opioid Use audi - Patient Portal Instructions audi - Leadership Thank You Letter audi Prescriptions: - Cephalexin 500 mg Oral Capsule - take 1 capsule ORAL route every 6 hours for 10 days; 40 capsule; Refills: 0, audi Product Selection Permitted Signatures: Dispatcher [employer] EDMS Ruben Subramanian MD MD cha Hernandez Jr, Noel, RN RN nh2 Kati Goldstein RN RN tb4 Megan Yoder RN aa5 Corrections: (The following items were deleted from the chart) 07:17 07:17 BASIC METABOLIC PANEL+C.LAB.BRZ ordered. EDNE EDMS 07:17 07:17 CBC+H.LAB.BRZ ordered. EDNE EDMS 07:17 07:17 HEPATIC FUNCTION+C.LAB.BRZ ordered. EDNE EDMS 07:17 07:17 MAGNESIUM+C.LAB.BRZ ordered. EDNE EDMS 07:17 07:17 PROBNP+C.LAB.BRZ ordered. EDNE EDMS 07:17 07:17 PROTIME (+INR)+COAG.LAB.BRZ ordered. EDMS EDMS 07:17 07:17 Troponin High Sensitivity+C.LAB.BRZ ordered. EDMS EDMS 07:17 07:17 LIPASE+C.LAB.BRZ ordered. EDMS EDMS 07:17 07:17 UA Rfx Joaquín Cult if indicated+U.LAB.BRZ ordered. EDMS EDMS 07:17 07:17 Chest Single View+RAD.RAD.BRZ ordered. EDNE EDMS 07:17 07:17 Head C Spine Cap Wo Con+CT.RAD.BRZ ordered. EDMS EDMS
--- NOTE | 2025-06-15 08:50 | RAD REPORT ---
EXAMINATION: ONE VIEW CHEST XR CLINICAL INDICATION: Female, 69 years old.,CHEST PAIN TECHNIQUE: Frontal chest projection is submitted. Examination is limited by patient positioning and t echnique. COMPARISON: No prior exam. FINDINGS: The lungs are well inflated and clear. No pneumothorax or sizable effusion. The heart is normal in s ize. Mediastinal contours are unremarkable. IMPRESSION: No acute intrathoracic abnormalities.
[2025-06-15 16:42] VITALS: BP 142/75; O2SAT 100
== END 2025-06-15 09:54 | disposition home or self-care (01) ==
LOC: ER 06:51
DX: S01.01XA Laceration without foreign body of scalp, initial encounter (principal); R55 Syncope and collapse; W18.30XA Fall on same level, unspecified, initial encounter; Z91.81 History of falling; Z23 Encounter for immunization
CPT/HCPCS: 96361; 12001; 93005; 85025; 80048; 36415; 83735; 85610; 80076; 84484; 83690; 83880; 70450; 71250; 72125; 74176; 71045; 90715; 96375; 96372; 96374; 99285; J7030